=== PATIENT | male | born 1935 | race Caucasian/White ===

== ENCOUNTER 2021-06-05 09:36 | Outpatient (CLI) | payer BC, SELFPAY ==
--- NOTE | 2021-06-05 | EST_ITS ---
Patient Info Name: Juan Bower Age: 85 years : 1935 Gender: Male Ht: 67 in Wt: 175 lbs BSA: 1.95 m2 HR: 70 bpm BP: 150 / 85 mmHg Exam Date: 06/05/2021 10:40 AM Exam Location: [facility] Patient Status: Outpatient Admit Date: 06/05/2021 Staff Ordering Physician: MADELYN CHAMBERS MD Operator Automated Process: Elizabeth Ordoñez RDCS Attending Provider: MADELYN CHAMBERS MD Referring Physician: TRISH OH; Exercise Technologist: Ping Reid RDCS Exam Type: CA dobutamine stress echo Study Info Indications I10 - Essential (primary) hypertension Dobutamine stress echocardiogram is performed. Summary 1. The patient underwent dobutamine stress echo testing with infusion of IV dobutamine starting at 10 mics per kilos, increasing to 30 mics per kilos per minute. He achieved peak heart rate of 126 beats per minute, 91% of his predicted maximal heart rate. Imaging was obtained at rest, low-dose, peak dose and in recovery. 2. Resting echo shows mild left atrial enlargement, mild LVH with overall good systolic function though with a small area of inferobasal hypokinesis, and calcification of the aortic valve suggestive of mild aortic stenosis.,. 3. No stress-induced chest pain. 4. No stress-induced EKG changes. 5. Hypertensive blood pressure response. 6. Small area inferobasal hypokinesis noted at rest. There was some augmentation of this area on the short axis views during stress although on the apical long axis views the area remained hypokinetic. 7. Negative dobutamine stress echo for ischemia. Recommendations * Consider long-term follow-up for aortic stenosis, , if clinically indicated. Protocol: Doubutamine Stress ECG Details Stage: REST Duration (min): 5 min : 47 sec Mccurdy: --- Speed (mph): 0.0 Grade (%): 0 HR (bpm): 71 SBP (mmHg): 150 DBP (mmHg): 85 METS: --- Stage: REST Duration (min): 16 min : 32 sec Mccurdy: --- Speed (mph): 0.0 Grade (%): 0 HR (bpm): 67 SBP (mmHg): 150 DBP (mmHg): 85 METS: --- Stage: STAGE 1 Duration (min): 1 min : 0 sec Mccurdy: --- Speed (mph): 0.0 Grade (%): 0 HR (bpm): 67 SBP (mmHg): 153 DBP (mmHg): 85 METS: --- Stage: STAGE 1 Duration (min): 2 min : 0 sec Mccurdy: --- Speed (mph): 0.0 Grade (%): 0 HR (bpm): 67 SBP (mmHg): 153 DBP (mmHg): 85 METS: --- Stage: STAGE 1 Duration (min): 3 min : 0 sec Mccurdy: --- Speed (mph): 0.0 Grade (%): 0 HR (bpm): 74 SBP (mmHg): 153 DBP (mmHg): 85 METS: --- Stage: STAGE 2 Duration (min): 1 min : 0 sec Mccurdy: --- Speed (mph): 0.0 Grade (%): 0 HR (bpm): 73 SBP (mmHg): 178 DBP (mmHg): 89 METS: --- Stage: STAGE 2 Duration (min): 2 min : 0 sec Mccurdy: --- Speed (mph): 0.0 Grade (%): 0 HR (bpm): 93 SBP (mmHg): 192 DBP (mmHg): 81 METS: --- Stage: STAGE 2 Duration (min): 3 min : 0 sec Mccurdy: --- Speed (mph): 0.0 Grade (%): 0 HR (bpm): 79 SBP (mmHg): 192 DBP (mmHg): 81 METS: --- Sta
== END 2021-06-05 09:37 | disposition home or self-care (01) ==
PROVIDERS: PCP Internal Medicine
DX: Z01.810 Encounter for preprocedural cardiovascular examination (principal); I10 Essential (primary) hypertension; Z51.81 Encounter for therapeutic drug level monitoring; Z79.84 Long term (current) use of oral hypoglycemic drugs; Z79.4 Long term (current) use of insulin
CPT/HCPCS: 93351